=== PATIENT | male | born 1965 | race African-American/Black ===

== ENCOUNTER 2018-05-11 09:31 | Emergency (ER) | payer OTHER ==
[2018-05-11 09:44] VITALS: BP 136/86
--- NOTE | 2018-05-11 10:10 | UC ---
Complaint Male HPI - HPI Summary HPI Summary: pt states he has had "dull" pain upper mid abdomen for 4 days. has not worsened , just not resolving. no N/V/D no fever or cough. many people at his work have been sick - History of Current Complaint Chief Complaint: UCAbdominalPain Stated Complaint: ABDOMINAL PAIN Time Seen by Provider: 05/11/18 09:47 Hx Obtained From: Patient Onset/Duration: Gradual Onset Timing: Constant Severity Initially: Moderate Severity Currently: Moderate Pain Intensity: 5 Location: Other - upper abd Aggravating Factor(s): Nothing Alleviating Factor(s): Nothing Associated Signs And Symptoms: Negative: Back Pain, Fever, Dysuria, Constipation , Blood in Stool, Nausea, Vomiting(# Of Episodes =) - Allergies/Home Medications Allergies/Adverse Reactions: Allergies Allergy/AdvReac Type Severity Reaction Status Date / Time No Known Allergies Allergy Verified 05/11/18 09:44 Home Medications: Home Medications NK [No Home Medications Reported] 05/11/18 [History Confirmed 05/11/18] PMH/Surg Hx/FS Hx/Imm Hx Previously Healthy: Yes - Surgical History Surgical History: None Surgery Procedure, Year, and Place: appendix 1983 - Family History Known Family History: Positive: Unknown - Social History Occupation: Employed Full-time - sales clerk food Alcohol Use: Occasionally Substance Use Type: None Smoking Status (MU): Former Smoker Review of Systems All Other Systems Reviewed And Are Negative: Yes Constitutional: Positive: Negative Skin: Positive: Negative. Negative: Rash ENT: Positive: Negative Respiratory: Positive: Negative. Negative: Cough Cardiovascular: Positive: Negative Gastrointestinal: Positive: Abdominal Pain. Negative: Vomiting, Diarrhea Genitourinary: Positive: Negative Neurological: Positive: Negative Psychological: Positive: Negative Is Patient Immunocompromised?: No Physical Exam Triage Information Reviewed: Yes Appearance: Well-Appearing, No Pain Distress, Well-Nourished Vital Signs: Initial Vital Signs Temp 98.6 F 05/11/18 09:38 Pulse 74 05/11/18 09:38 Resp 18 05/11/18 09:38 BP 136/86 05/11/18 09:38 Pulse Ox 99 05/11/18 09:38 Vital Signs Reviewed: Yes ENT: Positive: Normal ENT inspection, Pharynx normal Neck exam: Normal Neck: Positive: Supple, Nontender, No Lymphadenopathy Respiratory Exam: Normal Respiratory: Positive: Lungs clear Cardiovascular Exam: Normal Cardiovascular: Positive: RRR, No Murmur Abdomen Description: Positive: No Organomegaly, Soft, Other: - mild pain with palp R epigastric area, neg Modi's. Negative: CVA Tenderness (R), CVA Tenderness (L), Guarding, McBurney's Point Tenderness, Peritoneal Signs Bowel Sounds: Positive: Present Neurological Exam: Normal Neurological: Positive: Alert Psychological Exam: Normal Skin Exam: Normal Complaint Male Course/Dx - Differential Dx/Diagnosis Differential Diagnosis/HQI/PQRI: Urinary Tract Infection, Other - gastroenteritis, gastritis, gallbladder disease Provider Diagnosis: Abdominal pain Discharge - Sign-Out/Discharge Documenting (check all that apply): Patient Departure All imaging exams completed and their final reports reviewed: No Studies - Discharge Plan Condition: Stable Disposition: HOME Patient Education Materials: Abdominal Pain (ED) Referrals: Romulo Locke MD [Primary Care Provider] - 2 Days (if no better) Additional Instructions: try Mylanta antacid liquid (over the counter). Take as directed Rest, eat bland diet and drink plenty of fluids if your pain or symptoms worsen, please report to ER - Billing Disposition and Condition Condition: STABLE Disposition: Home
== END 2018-05-11 10:24 | disposition home or self-care (01) ==
LOC: UCEAST 09:31
DX: R10.10 Upper abdominal pain, unspecified (principal); R10.13 Epigastric pain; Z87.891 Personal history of nicotine dependence
CPT/HCPCS: 99201; G0463

== ENCOUNTER 2018-05-12 07:55 | Emergency (ER) | payer OTHER ==
--- NOTE | 2018-05-12 08:13 | ED ---
Abdominal Pain/Male - HPI Summary HPI Summary: Pt is a 53 y/o male who presents to the ED c/o abdominal pain. He states the symptoms began 4 days ago, and have been steadily worsening. Pt c/o constant sharp pain that originated in his RUQ, but now is epigastric. The pain is currently rated a 10/10 in severity. He has a constant sensation that he needs to produce a BM, but when he goes is only able to produce a small amount with bright red blood. He states he is constipated and bloated. Pt denies any N/V/D, decreased appetite, chills, fever, fatigue, or urinary sx. He went to yesterday and was given Mylanta and told to return if sx worsened. Pt returned to this morning and was sent here. Pt took some Ibuprofen last night. His last normal BM was 1 week ago. PMHx gastritis with previous admissions. PSHx appendectomy and polyp removal. He denies use of blood thinners. - History of Current Complaint Chief Complaint: EDAbdPain Stated Complaint: ABD PAIN Time Seen by Provider: 05/12/18 08:03 Hx Obtained From: Patient, Family/Offensive Coordinator Onset/Duration: Gradual Onset, Lasting Days - 4, Worse Since Timing: Constant Severity Currently: Severe Pain Intensity: 10 Pain Scale Used: 0-10 Numeric Location: Epigastric Radiates: No Character: Sharp Aggravating Factor(s): Nothing Alleviating Factor(s): Nothing Associated Signs And Symptoms: Positive: Constipation, Blood in Stool. Negative : Fever, Nausea, Vomiting, Diarrhea - Allergies/Home Medications Allergies/Adverse Reactions: Allergies Allergy/AdvReac Type Severity Reaction Status Date / Time No Known Allergies Allergy Verified 05/12/18 07:15 PMH/Surg Hx/FS Hx/Imm Hx Endocrine/Hematology History: Denies: Hx Diabetes, Hx Thyroid Disease Cardiovascular History: Denies: Hx Hypertension Respiratory History: Denies: Hx Asthma, Hx Chronic Obstructive Pulmonary Disease (COPD) GI History: Reports: Other GI Disorders - gastritis, appenditicitis, polyps Denies: Hx Diverticulosis, Hx Gastroesophageal Reflux Disease, Hx Ulcer - Surgical History Surgery Procedure, Year, and Place: appendix 1983. polyp removal Infectious Disease History: No Infectious Disease History: Denies: Hx Hepatitis, Hx Human Immunodeficiency Virus (HIV), Traveled Outside the [place] in Last 30 Days - Family History Known Family History: Positive: Hypertension, Other - HLD, NEGATIVE: colon CA, thyroid disorder Negative: Diabetes - Social History Alcohol Use: Occasionally Hx Substance Use: No Substance Use Type: Reports: None Hx Tobacco Use: Yes Smoking Status (MU): Former Smoker Review of Systems Negative: Fever, Chills, Fatigue Positive: Abdominal Pain, Other - blood with stool, NEGATIVE: constipation. Negative: Vomiting, Diarrhea, Nausea Negative: dysuria, hematuria All Other Systems Reviewed And Are Negative: Yes Physical Exam - Summary Physical Exam Summary: Appearance: Well appearing, no pain distress Skin: warm, dry, reflects adequate perfusion, no pallor Head/face: normal Eyes: EOMI, MICHELA ENT: mucous membranes moist Neck: supple, non-tender Respiratory: CTA, breath sounds present Cardiovascular: RRR, pulses symmetrical Abdomen: non-tender, soft, RLQ surgical scar Bowel Sounds: present Musculoskeletal: normal, strength/ROM intact Neuro: normal, sensory motor intact, A&Ox3 Rectal: inflamed external hemorrhoids with flecks of red blood on them, no gross blood in rectal vault Triage Information Reviewed: Yes Vital Signs On Initial Exam: Initial Vitals Temp Pulse Resp BP Pulse Ox 97.3 F 74 18 134/95 97 05/12/18 07:56 05/12/18 07:56 05/12/18 07:56 05/12/18 07:56 05/12/18 07:56 Vital Signs Reviewed: Yes Diagnostics - Vital Signs Vital Signs Temp Pulse Resp BP Pulse Ox 05/12/18 07:56 97.3 F 74 18 134/95 97 - Laboratory Result Diagrams: 05/12/18 08:20 05/12/18 08:20 Lab Statement: Any lab studies that have been ordered have been reviewed, and results considered in the medical decision making process. - Radiology Abdomen XR Radiology Interpretation Completed By: Radiologist Summary of Radiographic Findings: No free air or obstruction is noted. ED physician reviewed radiology report. - EKG 8:22 Cardiac Rate: NL - 70 bpm EKG Rhythm: Sinus Rhythm ST Segment: Non-Specific Summary of EKG Findings: Nl axis, nl interval, RBBB. Re-Evaluation - Re-Evaluation First Eval Re-Evaluation Time: 09:13 Change: Improved Comment: Pt feels better. Discussed XR results with pt. Abdominal Pain Fem Course/Dx - Course Course Of Treatment: Nurse's notes reviewed. Pt is neither pale nor tachycardic. His laboratories are benign. He has blood evident on his external hemorrhoids which are grossly inflamed. There is no blood seen on stool proximal to that. There is evidence of constipation and a history for this as well. He'll be treated for constipation and also for external hemorrhoids that are nonthrombosed. - Diagnoses Differential Diagnosis/HQI/PQRI: Other - Lower GI bleed, reticulosis, hemorrhoidal bleeding, internal hemorrhoids, constipation, diverticulitis Provider Diagnoses: Constipation, Bleeding hemorrhoid Discharge - Sign-Out/Discharge Documenting (check all that apply): Patient Departure - Discharge - Discharge Plan Condition: Improved Disposition: HOME Prescriptions: Bisacodyl SUPP* [Dulcolax Supp*] 10 mg TN DAILY PRN #5 supp PRN Reason: Constipation Hydrocortisone SUPP* [Anusol HC Supp*] 25 mg TN BID #10 supp Polyethylene Glycol 3350 BTL* [Miralax] 17 gm PO TID PRN #1 btl PRN Reason: Constipation Patient Education Materials: Constipation (ED), Hemorrhoids (ED), High Fiber Diet (ED) Referrals: Romulo Locke MD [Primary Care Provider] - Additional Instructions: Drink natural fruit juices such as prune or apple. High fiber diet. Abdominal massage and exercises may help. Return with persistent bleeding, worse, new symptoms or other concerns., Morning to schedule prompt follow-up with your primary care physician. - Billing Disposition and Condition Condition: IMPROVED Disposition: Home - Attestation Statements Document Initiated by Monica: Yes Documenting [place]: Mayda Navarro Provider For Whom Monica is Documenting (Include Credential): Shubham Casper MD Scribe Attestation: Mayda Hicks, scribed for Shubham Casper MD on 05/12/18 at 1812. Scribe Documentation Reviewed: Yes Provider Attestation: The documentation as recorded by the Mayda mendes accurately reflects the service I personally performed and the decisions made by me, Shubham Casper MD Status of Scribe Document: Viewed
[2018-05-12 08:31] LABS: ABS Basophils 0 10^3/ul (0-0.2); ABS Eosinophils 0.2 10^3/ul (0-0.6); ABS Lymphocytes 1.1 10^3/ul (1.0-4.8); ABS Monocytes 0.6 10^3/ul (0-0.8); ABS Neutrophils 6.1 10^3/ul (1.5-7.7); ABS Nucleated RBC 0 10^3/ul; Eosinophil % 2.8 %; Hematocrit 45 % (42-52); Hemoglobin 15.2 g/dl (14.0-18.0); Lymphocyte % 14.2 %; Mean Corpuscular HGB Conc 34 g/dl (31-36); Mean Corpuscular Hemoglobin 31 pg (27-31); Mean Corpuscular Volume 92 fL (80-94); Mean Platelet Volume 8.8 fL (7.4-10.4); Nucleated Red Blood Cells % 0.1; Platelet Count 246 10^3/ul (150-450); Red Blood Count 4.87 10^6/ul (4.00-5.40); Red Cell Distribution Width 13 % (10.5-15); White Blood Count 8.1 10^3/ul (3.5-10.8)
[2018-05-12 08:37] LABS: INR 0.91 (0.77-1.02)
[2018-05-12 08:48] LABS: Albumin 3.9 g/dL (3.2-5.2); Albumin/Globulin Ratio 1.1 (1-3); BUN/Creatinine Ratio 8.4 (8-20); C Reactive Protein 6.42 mg/L (<8.01); Calcium 9.3 mg/dL (8.6-10.3); EGFR African American 87.8 (>60); EGFR Non-African American 72.6 (>60); Globulin 3.5 g/dL (2-4); Potassium 3.8 mmol/L (3.5-5.0); Total Bilirubin 0.5 mg/dL (0.2-1.0); Total Protein 7.4 g/dL (6.4-8.9)
[2018-05-12 09:20] VITALS: BP 126/96
== END 2018-05-12 09:20 | disposition home or self-care (01) ==
LOC: ED 07:55
DX: K59.00 Constipation, unspecified (principal); K64.4 Residual hemorrhoidal skin tags; I45.10 Unspecified right bundle-branch block; Z87.891 Personal history of nicotine dependence
CPT/HCPCS: 36415; 74018; 80053; 83605; 83690; 85025; 85610; 86140; 86850; 86900; 86901; 93005; 99283